=== PATIENT | male | born 1970 | race Caucasian/White ===

== ENCOUNTER 2022-11-16 22:24 | Inpatient (IN) | payer OTHER ==
[2022-11-16 22:45] VITALS: BMI 26.6
[2022-11-16] MEDS ORDERED: LOPERAMIDE HCL 2 MG CAPSULE PO PRN (23:04)
[2022-11-16] MEDS ORDERED: P-EPHED 60MG/TRIPROLIDI 2.5MG TABLET PO PRN (23:04)
[2022-11-16] MEDS ORDERED: guaiFENesin 200 MG/10 ML 10 ML UNIT-DOSE CUPS PO PRN (23:04)
[2022-11-16] MEDS ORDERED: BENZOCAINE/MENTHOL (CHLORASEPTIC ) LOZENGE MM PRN (23:04)
[2022-11-16] MEDS ORDERED: DICYCLOMINE HCL 10 MG CAPSULE PO PRN (23:04)
[2022-11-16] MEDS ORDERED: BISMUTH SUBSALICYLATE 524 MG/30 ML PO PRN (23:04)
[2022-11-16] MEDS ORDERED: ACETAMINOPHEN 325 MG TABLET (FP) PO PRN ×2 (23:04)
[2022-11-16] MEDS ORDERED: MAGNESIUM HYDROX 2400MG/30ML ORAL SUSPENSION 30 ML CUP PO PRN (23:04)
[2022-11-16] MEDS ORDERED: POLYETHYLENE GLYCOL (HEALTHYLAX) 3350 17 GM PACKET PO PRN (23:04)
[2022-11-16] MEDS ORDERED: chlordiazePOXIDE HCL 25 MG CAPSULE PO PRN (23:06)
[2022-11-16] MEDS ORDERED: METOPROLOL TARTRATE 25 MG TABLET (FP) PO ONE (23:29)
[2022-11-16] MEDS: chlordiazePOXIDE HCL 25 MG CAPSULE PO SCH (23:30)
[2022-11-17] MEDS: hydrOXYzine PAMOATE 25 MG CAPSULE (FP) PO PRN ×2 (00:01→17:50)
[2022-11-17] MEDS: FAMOTIDINE 20 MG TABLET PO SCH ×3 (00:01→22:14)
[2022-11-17] MEDS: ONDANSETRON *ODT* 4 MG TABLET SL PRN (00:01)
[2022-11-17] MEDS: levETIRAcetam 500 MG TABLET (FP) PO SCH ×3 (00:07→22:14)
[2022-11-17] MEDS: chlordiazePOXIDE HCL 25 MG CAPSULE PO SCH ×4 (05:19→22:11)
[2022-11-17] MEDS: PRENATAL VITAMINS W/ FOLIC ACID TABLET (FP) PO SCH (10:15)
[2022-11-17 12:03] LABS: HEMATOCRIT 51.4 % (35.4-49); HEMOGLOBIN 16.3 GM/dL (11.7-16.9); MCH 28.5 pg (25.7-33.7); MCHC 31.6 g/dl (32.0-35.9); PLATELET COUNT 88 10^3/uL (134-434); RBC 5.71 M/mm3 (4.00-5.60); WHITE BLOOD COUNT 6.3 K/mm3 (4.0-10.0)
[2022-11-17 12:12] LABS: ALBUMIN 3.6 g/dl (3.4-5.0); BLOOD UREA NITROGEN 9.8 mg/dL (7-18)
[2022-11-17 12:13] LABS: CREATININE 1.3 mg/dL (0.55-1.3)
[2022-11-17 12:16] LABS: TOT PROT 6.3 g/dl (6.4-8.2)
[2022-11-17] MEDS: THIAMINE HCL 100 MG TABLET (FP) PO SCH (22:14)
[2022-11-17] MEDS: MELATONIN 5 MG TABLETS PO PRN (22:15)
[2022-11-18] MEDS: chlordiazePOXIDE HCL 25 MG CAPSULE PO SCH ×4 (06:30→22:08)
[2022-11-18] MEDS: FAMOTIDINE 20 MG TABLET PO SCH ×2 (10:08→22:09)
[2022-11-18] MEDS: levETIRAcetam 500 MG TABLET (FP) PO SCH ×2 (10:08→22:09)
[2022-11-18] MEDS: PRENATAL VITAMINS W/ FOLIC ACID TABLET (FP) PO SCH (10:08)
[2022-11-18] MEDS: hydrOXYzine PAMOATE 25 MG CAPSULE (FP) PO PRN ×2 (11:57→22:09)
[2022-11-18] MEDS: MAG HYDROX/AL HYDROX/SIMETH 30 ML UNIT-DOSE CUP PO PRN (17:33)
[2022-11-18] MEDS: THIAMINE HCL 100 MG TABLET (FP) PO SCH (22:09)
[2022-11-19] MEDS ORDERED: chlordiazePOXIDE HCL 10 MG CAPSULE PO PRN
[2022-11-19] MEDS: MAG HYDROX/AL HYDROX/SIMETH 30 ML UNIT-DOSE CUP PO PRN ×2 (00:04→06:05)
[2022-11-19] MEDS: chlordiazePOXIDE HCL 10 MG CAPSULE PO SCH ×4 (05:18→22:05)
[2022-11-19] MEDS: PRENATAL VITAMINS W/ FOLIC ACID TABLET (FP) PO SCH (10:20)
[2022-11-19] MEDS: FAMOTIDINE 20 MG TABLET PO SCH ×2 (10:20→22:03)
[2022-11-19] MEDS: levETIRAcetam 500 MG TABLET (FP) PO SCH ×2 (10:20→22:03)
[2022-11-19] MEDS: ONDANSETRON *ODT* 4 MG TABLET SL PRN (10:22)
[2022-11-19] MEDS: hydrOXYzine PAMOATE 25 MG CAPSULE (FP) PO PRN ×2 (10:22→22:03)
[2022-11-19] MEDS: THIAMINE HCL 100 MG TABLET (FP) PO SCH (22:03)
[2022-11-19] MEDS: METHOCARBAMOL 500 MG TABLET PO PRN (22:03)
[2022-11-19] MEDS: MELATONIN 5 MG TABLETS PO PRN (22:03)
[2022-11-20] MEDS: MELATONIN 5 MG TABLETS PO SCH ×2 (01:11→21:47)
[2022-11-20] MEDS: chlordiazePOXIDE HCL 10 MG CAPSULE PO SCH ×2 (05:25→17:02)
[2022-11-20] MEDS: hydrOXYzine PAMOATE 25 MG CAPSULE (FP) PO PRN (05:27)
[2022-11-20] MEDS: MAG HYDROX/AL HYDROX/SIMETH 30 ML UNIT-DOSE CUP PO PRN (05:28)
[2022-11-20] MEDS: levETIRAcetam 500 MG TABLET (FP) PO SCH ×2 (10:10→21:47)
[2022-11-20] MEDS: FAMOTIDINE 20 MG TABLET PO SCH ×2 (10:10→21:47)
[2022-11-20] MEDS: METHOCARBAMOL 500 MG TABLET PO PRN ×2 (10:10→21:48)
[2022-11-20] MEDS: PRENATAL VITAMINS W/ FOLIC ACID TABLET (FP) PO SCH (10:10)
[2022-11-20] MEDS ORDERED: PANTOPRAZOLE 40 MG TABLET PO ONE ×2 (10:42→13:00)
[2022-11-20 16:50] VITALS: RESP 18
[2022-11-20 21:09] VITALS: TEMP 97.3
[2022-11-20] MEDS: THIAMINE HCL 100 MG TABLET (FP) PO SCH (21:47)
[2022-11-21] MEDS ORDERED: chlordiazePOXIDE HCL 10 MG CAPSULE PO ONE (05:00)
[2022-11-21] MEDS ORDERED: PANTOPRAZOLE 40 MG TABLET PO SCH (07:00)
[2022-11-21 08:53] VITALS: BP 120/75; PULSE 65
== END 2022-11-21 09:33 | disposition home or self-care (01) | DRG 775 ==
LOC: YASAS 22:24 → Y3N 23:05
PROVIDERS: ADMIT Allergy & Immunology; ATTEND Surgery
PROC: HZ2ZZZZ Detoxification Services for Substance Abuse Treatment (ICD-10-PCS; principal; 2022-11-16)
DX: F10.230 Alcohol dependence with withdrawal, uncomplicated (principal); D69.6 Thrombocytopenia, unspecified; G47.00 Insomnia, unspecified; K21.9 Gastro-esophageal reflux disease without esophagitis; R03.0 Elevated blood-pressure reading, without diagnosis of hypertension; R74.01 Elevation of levels of liver transaminase levels; R63.0 Anorexia; Z68.26 Body mass index [BMI] 26.0-26.9, adult; Z87.891 Personal history of nicotine dependence; Z86.19 Personal history of other infectious and parasitic diseases; Z88.8 Allergy status to other drugs, medicaments and biological substances
CPT/HCPCS: 36415; 80053; 85027; 86780; C9803-CS; Q0162; U0003; U0005